=== PATIENT | female | born 1995 | race Caucasian/White ===

== ENCOUNTER 2018-04-05 22:13 | Emergency (ER) | END 2018-04-06 02:50 | disposition left against medical advice (07) ==

== ENCOUNTER 2018-07-16 17:05 | Emergency (ER) | END 2018-07-16 19:02 | disposition home or self-care (01) ==

== ENCOUNTER 2018-07-29 02:10 | Emergency (ER) | payer MEDICAID ==
[~2018-07-29] VITALS: Wt 68.2 kg
[~2018-07-29 02:10] MED LIST: ALBU8.5H5 IH; BACTDS PO; CYCL10TA7 PO; DOCU-144 PO; IBUP-1542 PO; RIFA300C53 PO
[2018-07-29 02:13] VITALS: BP 144/72; PULSE 110; RESP 20
[2018-07-29] MEDS ORDERED: ACETAMINOPHEN 500 MG TAB PO STA (04:02)
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
[2018-07-29] MEDS ORDERED: IBUP800T48 PO (05:32)
== END 2018-07-29 05:37 | disposition home or self-care (01) ==
LOC: FTE 02:10
DX: S20.212A Contusion of left front wall of thorax, initial encounter (principal); R51 Headache; F17.210 Nicotine dependence, cigarettes, uncomplicated; Y04.8XXA Assault by other bodily force, initial encounter
CPT/HCPCS: 70450; 70486; 71046; 71100; 81025; Z7502; Z7610